=== PATIENT | female | born 1965 | race Caucasian/White ===

== ENCOUNTER 2023-09-27 20:41 | Emergency (ER) | payer MEDICARE ==
[2023-09-27 22:07] VITALS: BP 138/80; PULSE 100; RESP 18; TEMP 98.2
--- NOTE | 2023-09-27 22:30 | ED ---
Female Urogenital HPI - General Source: patient, RN notes reviewed Mode of arrival: ambulatory Limitations: no limitations <Chika Jackson - Last Filed: 09/27/23 22:29> <Kalyn Shah - Last Filed: 09/27/23 23:24> - General Chief complaint: Urogenital Stated complaint: Bladder infection Time Seen by Provider: 09/27/23 22:29 - History of Present Illness Initial comments: Quick [id number] female presenting with dysuria x 3 days with suprapubic discomfort. States she feels as though she has a UTI. Denies nausea, vomiting, fever (Chika Jackson) Evelyne is a pleasant 57-year-old female who presents to the ER today with 3 days of urinary frequency hesitancy dysuria. Patient reports she has a history of UTIs she had a UroLift procedure by a urologist in the [facility] and reports she has been doing well since and has not had a UTI. She does not have established primary care here in [facility] and she is scheduled to see somebody for the first time in November so she did not know where else to go for the symptoms and came to the ER. (Kalyn Shah) - Related Data Previous Rx's Medication Instructions Recorded Cephalexin [Keflex] 500 mg PO Q8HR 5 Days #15 cap 09/27/23 Phenazopyridine HCl [Pyridium] 200 mg PO TID PRN #9 tablet 09/27/23 Allergies Allergy/AdvReac Type Severity Reaction Status Date / Time bee venom protein (honey bee) Allergy Swelling Verified 09/27/23 21:51 codeine Allergy Rash/Hives Verified 09/27/23 21:51 miconazole Allergy Swelling Verified 09/27/23 21:51 [From Neosporin AF] morphine Allergy Anaphylaxis Verified 09/27/23 21:51 Review of Systems ROS Other: All systems not noted in ROS Statement are negative. <Chika Jackson - Last Filed: 09/27/23 22:29> ROS Other: All systems not noted in ROS Statement are negative. <Kalyn Shah - Last Filed: 09/27/23 23:24> ROS Statement: Those systems with pertinent positive or pertinent negative responses have been documented in the HPI. Past Medical History Past Medical History: COPD History of Any Multi-Drug Resistant Organisms: None Reported Past Surgical History: Back Surgery, Section, Orthopedic Surgery Additional Past Surgical History / Comment(s): urethral/bladder Sx, c section X3 , back , hip , left knee ,left foot Past Psychological History: No Psychological Hx Reported Smoking Status: Current every day smoker Past Alcohol Use History: None Reported Past Drug Use History: None Reported <Chika Jackson - Last Filed: 09/27/23 22:29> General Exam Limitations: no limitations <Chika Jackson - Last Filed: 09/27/23 22:29> <Kalyn Shah - Last Filed: 09/27/23 23:24> - General Exam Comments Initial Comments: Visual Physical Exam Vital signs reviewed General: Well-appearing, nontoxic, no acute distress. Head: Normocephalic, atraumatic Eyes: PERRLA, EOMI ENT: Airway patent Chest: Nonlabored breathing Skin: No visual rash, normal skin tone Neuro: Alert and oriented 3 Musculoskeletal: No gross abnormalities (Chika Jackson) Physical Exam GENERAL: Patient is well-developed and well-nourished. Patient is nontoxic and well-hydrated and is in no distress. HENT: Normocephalic, Atraumatic. EYES: PERRL, EOMI PULMONARY: Unlabored respirations. CARDIOVASCULAR: RRR Warm and well perfused extremities ABDOMEN: Non-distended SKIN: No rashes or bruising : Deferred NEUROLOGIC: Alert and oriented Normal speech Normal gait MUSCULOSKELETAL: Moving all extremities with no apparent injury PSYCHIATRIC: No SI/HI (Kalyn Shah) Course Vital Signs 09/27/23 21:52 Temperature 98.2 F Pulse Rate 100 Respiratory 18 Rate Blood Pressure 138/80 O2 Sat by Pulse 92 L Oximetry Medical Decision Making <Chika Jackson - Last Filed: 09/27/23 22:29> <Kalyn Shah - Last Filed: 09/27/23 23:24> - Medical Decision Making I completed the quick note portion of this chart signed Chika Jackson PA-C (Chika Jackson) Was pt. sent in by a medical professional or institution (, [facility], [employer], urgent care, hospital, or fci...) When possible be specific @ -No Did you speak to anyone other than the patient for history (EMS, parent, family, police, friend...)? What history was obtained from this source @ -No Did you review nursing and triage notes (agree or disagree)? Why? @ -I reviewed and agree with nursing and triage notes Were old charts reviewed (outside hosp., previous admission, EMS record, old EKG, old radiological studies, urgent care reports/EKG's, fci records)? Report findings @ -No old charts were reviewed Differential Diagnosis (chest pain, altered mental status, abdominal pain women, abdominal pain men, vaginal bleeding, weakness, fever, dyspnea, syncope, headache, dizziness, GI bleed, back pain, seizure, CVA, palpatations, mental health)? @ -UTI versus sexually transmitted infection versus vulvodynia EKG interpreted by me (3pts min.). @ -As above X-rays interpreted by me (1pt min.). @ -None done CT interpreted by me (1pt min.). @ -None done U/S interpreted by me (1pt. min.). @ -None done What testing was considered but not performed or refused? (CT, X-rays, U/S, labs)? Why? @ -None What meds were considered but not given or refused? Why? @ -None Did you discuss the management of the patient with other professionals (professionals i.e. , PA, [employer], lab, RT, psych nurse, social media strategist, fitness management director, teacher, landcare officer, home health care case manager)? Give summary @ -No Was smoking cessation discussed for >3mins.? @ -No Was critical care preformed (if so, how long)? @ -No Were there social determinants of health that impacted care today? How? (Homelessness, low income, unemployed, alcoholism, drug addiction, transportation, low edu. Level, literacy, decrease access to med. care, fpc, rehab)? @ -No Was there de-escalation of care discussed even if they declined (Discuss DNR or withdrawal of care, Hospice)? DNR status @ -No What co-morbidities impacted this encounter? (DM, HTN, Smoking, COPD, CAD, Cancer, CVA, ARF, Chemo, Hep., AIDS, mental health diagnosis, sleep apnea, morbid obesity)? @ -None Was patient admitted / discharged? Hospital course, mention meds given and route, prescriptions, significant lab abnormalities, going to OR and other pertinent info. @ -Discharged Patient was seen and evaluated urinalysis is consistent with a UTI. Patient will be treated with Keflex and Pyridium. Return parameters were discussed patient discharged home stable condition. Undiagnosed new problem with uncertain prognosis? @ -No Drug Therapy requiring intensive monitoring for toxicity (Heparin, Nitro, Insu moises, Cardizem)? @ -No Were any procedures done? @ -No Diagnosis/symptom? @ -Urinary tract infection Acute, or Chronic, or Acute on Chronic? @ -Acute Uncomplicated (without systemic symptoms) or Complicated (systemic symptoms)? @ -Uncomplicated Side effects of treatment? @ -No Exacerbation, Progression, or Severe Exacerbation? @ -No Poses a threat to life or bodily function? How? (Chest pain, [place], [place], pneumonia, PE, COPD, DKA, ARF, appy, cholecystitis, CVA, Diverticulitis, Homicidal, Suicidal, threat to staff... and all critical care pts) @ -Unlikely though if untreated can progress to pyelonephritis sepsis septic shock and (Kalyn Shah) - Lab Data Lab Results 09/27/23 Range/Units 22:10 Urine Color Yellow Urine Appearance Cloudy H (Clear) Urine pH 6.0 (5.0-8.0) Ur Specific [place] 1.025 (1.001-1.035) Urine Protein Trace H (Negative) Urine Glucose (UA) Negative (Negative) Urine Ketones Negative (Negative) Urine Blood Trace H (Negative) Urine Nitrite Negative (Negative) Urine Bilirubin Negative (Negative) Urine Urobilinogen <2.0 (<2.0) mg/dL Ur Leukocyte Esterase Large H (Negative) Urine RBC 18 H (0-5) /hpf Urine WBC 57 H (0-5) /hpf Ur Squamous Epith Cells 3 (0-4) /hpf Urine Bacteria Occasional H (None) /hpf Urine Mucus Few H (None) /hpf Disposition <Chika Jackson - Last Filed: 09/27/23 22:29> Is patient prescribed a controlled substance at d/c from ED?: No <Kalyn Shah - Last Filed: 09/27/23 23:24> Clinical Impression: Urinary tract infection Disposition: HOME SELF-CARE Condition: Stable Instructions (If sedation given, give patient instructions): Urinary Tract Infection in Women (ED) Prescriptions: Cephalexin [Keflex] 500 mg PO Q8HR 5 Days #15 cap Phenazopyridine HCl [Pyridium] 200 mg PO TID PRN #9 tablet PRN Reason: Pain Control Referrals: None,Stated [Primary Care Provider] - 1-2 days
[2023-09-27 22:49] LABS: Appearance,Urine Cloudy (Clear); Bacteria,Urine Occasional /hpf; Bilirubin,Urine Negative (Negative); Blood,Urine Trace (Negative); Color,Urine Yellow; Glucose,Urine (UA) Negative (Negative); Ketones,Urine Negative (Negative); Leukocyte Esterase,Urine Large (Negative); Mucus,Urine Few /hpf; Nitrite,Urine Negative (Negative); Protein,Urine Trace (Negative); RBC,Urine 18 /hpf (0-5); Specific Gravity,Urine 1.025 (1.001-1.035); Squamous Epithelial Cell,Urine 3 /hpf (0-4); Urobilinogen,Urine <2.0 mg/dL (<2.0); WBC,Urine 57 /hpf (0-5)
[2023-09-27] MEDS: CEPHALEXIN 500MG STARTER PACK 4 CAP BTL PO STA (23:00)
[2023-09-27] MEDS: PHENAZOPYRIDINE 100 MG TAB PO STA (23:00)
== END 2023-09-27 23:23 | disposition home or self-care (01) ==
LOC: EC 20:41
DX: N39.0 Urinary tract infection, site not specified (principal); F17.200 Nicotine dependence, unspecified, uncomplicated; Z91.030 Bee allergy status; Z88.5 Allergy status to narcotic agent; Z88.8 Allergy status to other drugs, medicaments and biological substances
CPT/HCPCS: 81001; 87086; 99283

== ENCOUNTER → 2024-06-25 | Outpatient (CLI) | payer MEDICARE ==
--- NOTE | 2024-06-25 17:38 | CT ---
EXAMINATION TYPE: CT chest w con DATE OF EXAM: 06/25/2024 3:09 PM COMPARISON: None. CLINICAL INDICATION: Female, 58 years old with history of R63.4 ABNORMAL WEIGHT LOSS J44.9 CHRONIC O F17.210, abnormal weight loss 100lbs in 90 days TECHNIQUE: Axial images were obtained at 5 mm thick sections. Reconstructed images are reviewed on [employer] computer in the coronal plane. Contrast used:100 mL of Isovue 300 with IV Contrast, (none if empty) Oral contrast used: (none if empty) CT DLP: 557.3 mGycm, Automated exposure control for dose reduction was used. FINDINGS: Thyroid is enlarged extending to the superior mediastinum. This is slightly heterogenous within the r ight lobe. Discrete masses are not identified. No suspicious lung nodules or focal infiltrates are present. No enlarged mediastinal or hilar adenopathy is evident. The ascending aorta diameter at the level o f the main pulmonary artery is 3.3 cm. The main pulmonary artery diameter at the bifurcation is 2.[address] sections are obtained through the upper abdomen. There is a 3.5 cm cyst on the anterior up per pole left kidney IMPRESSION: 1. Enlarged thyroid. Correlate for goiter. 2. No suspicious acute changes in this CT chest. [facility], , 06/25/2024 5:36 PM
== END | disposition home or self-care (01) ==
LOC: RADCTMAIN 14:35
PROVIDERS: ATTEND Family Medicine
DX: J44.9 Chronic obstructive pulmonary disease, unspecified (principal); F17.210 Nicotine dependence, cigarettes, uncomplicated; R63.4 Abnormal weight loss; E04.8 Other specified nontoxic goiter
CPT/HCPCS: 71260; Q9967